=== PATIENT | male | born 1950 | race Caucasian/White ===

== ENCOUNTER 2017-03-11 08:15 | Emergency (ER) | payer OTHER ==
[~2017-03-11] VITALS: Ht 185.4 cm; Wt 140.6 kg
--- NOTE | ~2017-03-11 | EKG ---
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
[~2017-03-11 08:15] MED LIST: ATENOLOL 50 MG50 M1 PO; BENAZEPRIL HCT; CRESTOR20 MG PO; OMEPRAZOLE20 M2 PO
[2017-03-11] MEDS ORDERED: BYSTOLIC 5 MG5 M1 PO (08:31)
[2017-03-11] MEDS ORDERED: LIPITOR 20 MG T20 M1 PO (08:32)
[2017-03-11] MEDS ORDERED: LASIX 20 MG TAB20 MG PO (08:33)
[2017-03-11] MEDS ORDERED: ASPIR 8181 M1 PO (08:34)
[2017-03-11] MEDS ORDERED: MELATONIN3 MG PO (08:34)
[2017-03-11 08:48] LABS: ABSOLUTE NEUTROPHILS 7.3 thou/uL (1.4-8.2); BASOPHILS 0.7 % (0.0-2.0); HEMATOCRIT 47.9 % (42.0-52.0); LYMPHOCYTES 18.3 % (24.0-44.0); MCH 32.7 pg (26.0-34.0); MCHC 33.3 g/dL (28.0-37.0); MCV 98.1 fL (80.0-100.0); MONOCYTES 10.9 % (1.0-8.0); POLYS 68.1 % (36.0-66.0); RBC 4.88 mil/uL (4.50-6.00); RDW 14.1 % (10.5-14.5); WBC 10.7 thou/uL (4.0-11.0)
[2017-03-11 08:49] LABS: MANUAL DIFF NO
[2017-03-11 08:54] LABS: ABG SAMPLE TYPE ARTERIAL; BE(vivo) -0.3 mmol/L (-2 to +3); O2(CT) 21.5 mL/dL (15.0-23.0); O2Hb 91.8 % (92.0-98.0); PCO2 43.2 mmHg (35.0-45.0); PO2 67.2 mmHg (80.0-100.0); tCO2 26.3 mmol/L (24.0-30.0)
[2017-03-11 08:54] LABS: CALCIUM 8.9 mg/dL (8.5-10.1); POTASSIUM 4.3 mmol/L (3.5-5.1)
[2017-03-11 08:55] LABS: LACTATE 3.84 mmol/L (0.5-2.0); STICK SITE L.RADIAL
[2017-03-11 09:23] LABS: PLATELET COUNT 134 thou/uL (150-400)
[2017-03-11 09:44] LABS: NT-PRO BRAIN NAT PEPTIDE 57 pg/mL (<300); TROPONIN-I < 0.04 ng/mL (<0.04-0.07)
[2017-03-11 10:45] VITALS: BP 150/68
[2017-03-11] MEDS ORDERED: PREDNISONE 20 M20 MG PO (11:03)
[2017-03-11] MEDS ORDERED: PROVENTIL HFA6.7 G1 INH (11:03)
[2017-03-11 11:12] LABS: URINE BILIRUBIN NEGATIVE (Negative); URINE BLOOD TRACE (Negative); URINE COLOR YELLOW; URINE GLUCOSE-RANDOM* NEGATIVE (Negative); URINE KETONES NEGATIVE (Negative); URINE NITRITE NEGATIVE (Negative); URINE PROTEIN (DIPSTICK) NEGATIVE (Negative); URINE SPECIFIC GRAVITY 1.015 (1.003-1.035)
== END 2017-03-11 11:35 | disposition home or self-care (01) ==
LOC: ER 08:15
PROVIDERS: Emergency Medicine
DX: J06.9 Acute upper respiratory infection, unspecified (principal); J98.01 Acute bronchospasm; R60.9 Edema, unspecified; R74.0 Nonspecific elevation of levels of transaminase and lactic acid dehydrogenase [LDH]; I10 Essential (primary) hypertension; E78.00 Pure hypercholesterolemia, unspecified; I25.2 Old myocardial infarction; Z88.8 Allergy status to other drugs, medicaments and biological substances